=== PATIENT | female | born 1980 | race Caucasian/White ===

== ENCOUNTER 2020-08-04 16:56 | Outpatient (CLI) | payer BC, SELFPAY | END 2020-08-04 16:57 | disposition home or self-care (01) | LOC: ANHLAB 17:00 | PROVIDERS: Visit Provider Obstetrics & Gynecology | DX: N92.0 Excessive and frequent menstruation with regular cycle (principal); Z01.818 Encounter for other preprocedural examination | CPT/HCPCS: 36415; 86850; 86900; 86901 ==

== ENCOUNTER → 2020-08-06 03:06 | Outpatient (CLI) | payer BC, SELFPAY ==
[2020-08-06 19:46] LABS: SARS-CoV-2 RNA PCR Negative
== END ==
PROVIDERS: Visit Provider Obstetrics & Gynecology
DX: Z01.812 Encounter for preprocedural laboratory examination (principal); Z20.822 Contact with and (suspected) exposure to COVID-19
CPT/HCPCS: C9803; U0003; U0005

== ENCOUNTER 2020-08-09 00:54 | Day surgery (SDC) | payer BC, SELFPAY ==
[2020-07-28 10:40] VITALS: BMI 23.8
[2020-08-09] VITALS (11 sets, daily range): BP systolic 83–115; BP diastolic 41–73; PULSE 68–85; RESP 12–20; TEMP 36.6–36.8; O2SAT 99–100; BMI 24.1
--- NOTE | 2020-08-09 06:50 | P.PNAN_ITS ---
Anes - Initial Pre Proc Eval Procedure: Operation Date: 08/09/20 07:30 Proposed Procedures p Total Laparoscopic Assisted Hysterectomy - Juan Wilcox MD Date/Time: 08/09/20 06:50 Surgeon: Juan Wilcox MD Pre Op Diagnosis: menorrhagia Patient Data Age: 39 Gender: F Height: 5 ft 1 in Weight: 57.15 kg Allergies Allergy/AdvReac Type Severity Reaction Status Date / Time amoxicillin Allergy Severe Rash Verified 08/09/20 06:42 latex Allergy Severe Swelling Verified 08/09/20 06:42 MEPERIDINE HCL AdvReac Intermediate Vomiting Uncoded 08/09/20 06:42 Home Medications Medication Instructions Recorded Confirmed Type paroxetine HCl 20 mg PO DAILY 07/28/20 08/09/20 History topiramate 50 mg PO BID 07/28/20 08/09/20 History Patient hx anesthesia problems: post op nausea/vomiting Family hx anesthesia problems: none PMFSH Past Medical History Medical History Cervical cancer Depression Hx of migraines TIA (transient ischemic attack) Social History Social History Smoking status: Never smoker Alcohol intake: never Substance use: never Substance use type: does not use Living arrangements: with family Spiritual care concerns: No Anes - Eval Final PreProcedure Day of Procedure 08/09/20 06:50 Patient weight: normal Heart: regular rate and rhythm Lungs: clear to auscultation Airway: Mallampati scale class II Neurological: alert and oriented Last oral intake: >/= 8 hours ASA classification: III Emergent: no Anesthetic plan: proceed Anesthesia type and monitoring: general ETT and standard monitoring Informed Consent: The patient's anesthetic plan and its attendant risks and chava efits were discussed with the patient/family/POA. Questions were solicited and answers provided to the satisfaction of the patient/family/POA.
[2020-08-09] MEDS: LACTATED RINGERS 1,000 ML 30 ML IV CONT ×3 (06:55→09:53)
[2020-08-09] MEDS: ACETAMINOPHEN 500 MG TABLET 1000 MG PO (06:59)
[2020-08-09] MEDS: KETOROLAC 15 MG/ML VIAL (*BKC) IV PUSH (06:59)
[2020-08-09] MEDS: SCOPOLAMINE 1.5 MG PATCH TRANSDERM (06:59)
--- NOTE | 2020-08-09 07:17 | WPDHPUPDATE1 ---
History and Physical Update Update Date/Time: 08/09/20 07:17 History and Physical has been reviewed, including an updated exam of the patient. There are NO changes in the patient's condition. Risks, benefits, and alternatives have been discussed and questions answered. Patient agrees to proceed with procedure.
[2020-08-09] MEDS: CLINDAMYCIN 900 MG/D5W 50 ML 900 MG/50 ML PIGGYBACK 50 MG IVPB (07:32)
--- NOTE | 2020-08-09 09:50 | PM.PROC ---
Procedure Note - Detailed Date of procedure: 08/09/20 Pre-op diagnosis: menorrhagia Menorrhagia, left ovarian cyst Procedure performed: Total laparoscopic hysterectomy. Left ovarian cystectomy. Description of procedure: The patient was taken to the operating room. She was prepped and draped in the dorsal lithotomy position. A speculum was placed in the vagina. The cervix was grasped with a tenaculum. Stay sutures were placed at 3 and 9:00 a.m. of 0 Vicryl. The stay sutures were brought through the Ren up. The DARWIN manipulator was placed in the vagina with a fixed Ren cup. The cup was then pushed up around the cervix. The sutures were tied to the handle of the DARWIN manipulator. A 5 mm incision was made on the abdominal skin of the left upper quadrant using a scalpel. A 5 mm trocar was inserted into the intra-abdominal cavity under direct visualization the scope. Pneumoperitoneum was achieved. An 11 mm incision was made in the left lower quadrant of the abdomen with a scalpel. A 11 mm trocar was inserted into the intra-abdominal cavity under direct visualization the scope. A 5 mm periumbilical incision was made. A 5 mm scope was placed into the intra-abdominal cavity under direct visualization of the scope. Ovarian cystectomy was performed her left ovary. An incision was made in the ovary. The cyst capsule was peeled out of the ovary. The cut surface of the ovary was cauterized. Part of the cyst wall was removed as well to facilitate cauterization. This was all done with sharp and blunt dissection and cautery. The suspensory ligament of the ovary was cauterized and transected with ligature cautery in a bilateral fashion. The fallopian tubes were cauterized and transected in a bilateral fashion with LigaSure cautery. The round ligaments were cauterized and transected in bilateral fashion with LigaSure cautery. The round ligaments were cauterized and transected bilaterally with LigaSure cautery. The broad ligaments were cauterized and transected along the lateral aspects of the uterus down the level of the uterine arteries. A bladder flap was created using sharp and blunt dissection. The ureters were dissected out bilaterally down to the level of the uterine arteries. They could be visualized from the pelvic brim down the uterine arteries. Staying very close to the cervix the parametrium was cauterized transected in a stepwise fashion down to the level of the Ren cup. The Bladder flap was moved distally over the Ren cup using sharp and blunt dissection. The impression of the entire cup was visualized around the cervix. An incision was made with unipolar cautery down under the Ren cup creating a colpotomy incision all the way around the cervix. The uterus was taken out through the vagina. A pneumo occluder was placed in the vagina. The vagina was closed with 0 V lock suture in a running fashion. The ureters were identified again and found to be intact to the level of the uterine arteries. The pelvis was irrigated with a copious amount of antibiotic irrigation. The pneumoperitoneum was reduced. The trocars were removed. The skin was closed subcuticular 4 Monocryl covered with Dermabond. The pneumo occluder was removed from the vagina. The vagina was irrigated with Betadine. The patient tolerated the procedure well. She was taken to the recovery room in stable condition. Sponge lap and needle counts were correct x2. Anesthesia: GETA Surgeon: Juan Wilcox MD Estimated blood loss (mL): 200 Drains: No Packing: No Pathology: yes Complications: No immediate complications Condition: stable Disposition: PACU Findings: Absent fallopian tubes, pre cm to 4 cm left ovarian cyst. Scar between the bladder in the uterus. Normal size uterus. Normal-appearing right ovary
--- NOTE | 2020-08-09 10:04 | SUR.PHASEI ---
O2 removed at 1004.
[2020-08-09] MEDS: ONDANSETRON INJ 4 MG/2 ML VIAL IV PUSH (10:19)
[2020-08-09] MEDS: diphenhydrAMINE HCl INJ 50 MG/ML VIAL 25 MG IV PUSH (10:32)
[2020-08-09] MEDS: DEXTROSE 5%/0.45% SOD CHL 1,000 ML 125 ML IV CONT (11:29)
[2020-08-09] MEDS: METOCLOPRAMIDE HCL INJ 10 MG/2 ML VIAL (11:30)
[2020-08-09] MEDS: KETOROLAC 30 MG/ML VIAL (*BKC) IV PUSH (12:51)
[2020-08-09] MEDS: HYDROcodone/acetaminophen (*CRX) 10-325 MG TABLET 1 TAB PO ×2 (13:59→21:55)
[2020-08-09] MEDS: TOPIRAMATE 25 MG TABLET 50 MG PO (17:07)
[2020-08-09] MEDS: IBUPROFEN 600 MG TABLET PO (21:55)
[2020-08-10 04:40] VITALS: BP 104/68; PULSE 67; RESP 16; TEMP 36.6
[2020-08-10] MEDS: PARoxetine 20 MG TABLET PO (07:43)
[2020-08-10] MEDS: TOPIRAMATE 25 MG TABLET 50 MG PO (07:43)
[2020-08-10] MEDS: IBUPROFEN 600 MG TABLET PO (07:44)
[2020-08-10 08:25] VITALS: BP 105/53; PULSE 82; RESP 16; TEMP 37.7; O2SAT 100
--- NOTE | 2020-08-10 08:28 | PM.GYNPNOP ---
BOTTLE CARRIER - A/P Postoperative Procedures: Procedures Operation Date: 08/09/20 07:30 Actual Procedure Side Surgeon p Total Laparoscopic Assisted Hysterectomy Not Applicable Juan Wilcox MD Postoperative day: 1 Postoperative status: doing well and other (Tollerating Regular Diet) Postoperative plan: routine post-op care and discharge Time Spent With Patient Time: Total time spent is greater than 50% in coordination of care (as documented) at patient's floor/unit and/or counseling patient: Time with patient: 15 - 25 minutes BOTTLE CARRIER- PN:Subj Post-Op Subjective Date/time seen: 08/10/20 08:28 Subjective: patient reports feeling better, pain is well controlled and patient is tolerating oral intake Exam Const: General: cooperative, healthy appearing, comfortable and no acute distress Resp: Auscultation: no crackles, no rales, no rhonchi and no wheezes Cardio: Rhythm: regular rhythm Heart sounds: no click and no murmurs GI: Inspection: non-distended Auscultation: normal bowel sounds Other: Incisions - CDI Extrem: General: normal to inspection, no pedal edema and no calf tenderness BOTTLE CARRIER - PN: Obj Data Vital Signs Vital Signs: Vital Signs - 24 hr 08/09/20 09:21 08/09/20 09:35 08/09/20 09:50 Temperature 98.1 F Pulse Rate 68 85 69 Respiratory Rate 14 16 15 Blood Pressure 83/41 L 92/52 L 98/56 L Pulse Oximetry 100 100 99 08/09/20 10:05 08/09/20 10:20 08/09/20 10:35 Temperature Pulse Rate 68 70 85 Respiratory Rate 14 13 12 Blood Pressure 94/55 L 96/55 L 104/62 Pulse Oximetry 99 100 100 08/09/20 10:50 08/09/20 11:15 08/09/20 17:30 Temperature 97.8 F 98.3 F Pulse Rate 82 76 73 Respiratory Rate 13 18 20 Blood Pressure 105/61 96/60 L 104/62 Pulse Oximetry 100 100 99 08/09/20 22:00 08/10/20 04:40 Temperature 98.0 F 97.8 F Pulse Rate 70 67 Respiratory Rate 16 16 Blood Pressure 115/73 104/68 Pulse Oximetry Intake/Output Intake/Output: Intake & Output 08/07/20 08/08/20 08/09/20 08/10/20 23:59 23:59 23:59 23:59 Intake Total 1457.125 Output Total 400 Balance 1057.125 Meds/Results Medications: Active Medications Generic Name Dose Route Start Last Admin Trade Name Freq PRN Reason Stop Dose Admin Hydrocodone Bitart/Acetaminophen 1 tab 08/09/20 10:56 Hydrocodone/Acetaminophen (*Crx) 5-325 Mg Tablet PO Q3H PRN Pain Rated 5 or Less Hydrocodone Bitart/Acetaminophen 1 tab 08/09/20 10:56 08/09/20 21:55 Hydrocodone/Acetaminophen (*Crx) 10-325 Mg Tablet PO 1 tab Q3H PRN Administration Pain Rated 6 or Greater Ibuprofen 600 mg 08/09/20 10:56 08/10/20 07:44 Ibuprofen 600 Mg Tablet PO 600 mg Q6H PRN Administration Cramping Ketorolac Tromethamine 30 mg 08/09/20 10:56 08/09/20 12:51 Ketorolac 30 Mg/Ml Vial (*Bkc) IV PUSH 08/14/20 10:57 30 mg Q6H PRN Administration Pain Rated 4-6 Metoclopramide HCl 5 mg 08/09/20 22:10 Metoclopramide Hcl Inj 10 Mg/2 Ml Vial IV PUSH Q6HR PRN Nausea Naloxone HCl 0.1 mg 08/09/20 10:56 Naloxone Hcl 0.4 Mg/Ml Vial IV PUSH Q2M PRN Respiratory rate less than 10 Ondansetron HCl 4 mg 08/09/20 10:56 Ondansetron Inj 4 Mg/2 Ml Vial IV PUSH Q6H PRN Nausea And Vomiting Paroxetine HCl 20 mg 08/10/20 09:00 08/10/20 07:43 Paroxetine 20 Mg Tablet PO 20 mg DAILY EDD Administration Topiramate 50 mg 08/09/20 17:00 08/10/20 07:43 Topiramate 25 Mg Tablet PO 50 mg BID EDD Administration
[2020-08-10] MEDS: HYDROcodone/acetaminophen (*CRX) 5-325 MG TABLET 1 TAB PO (10:59)
--- NOTE | 2020-08-10 11:04 | WPDANESPN ---
Anes - Prog Note Post-Op Date/Time: 08/10/20 11:04 Cardiovascular status: normal Respiratory status: normal Airway patency: baseline Mental status: baseline Post-Op hydration status: normal Vital Signs: Last Vital Signs Temp 37.7 C H 08/10/20 08:25 Pulse 82 08/10/20 08:25 Resp 16 08/10/20 08:25 BP 105/53 L 08/10/20 08:25 Pulse Ox 100 08/10/20 08:25 Pain Score (VAS): 3 I/O: Intake & Output 08/09/20 08/10/20 08/10/20 23:59 07:59 15:59 Intake Total 200 Output Total 350 Balance -150 Post-procedural complaints: none Patient Feedback: Patient satisfied with anesthetic care.
== END 2020-08-10 11:57 | disposition home or self-care (01) ==
LOC: ANHSURGERY 06:12 → ANHOB2 13:35
PROVIDERS: PCP Emergency Medicine; Visit Provider Obstetrics & Gynecology
PROC: 0UT9FZZ Resection of Uterus, Via Natural or Artificial Opening With Percutaneous Endoscopic Assistance (ICD-10-PCS; CPT 58570; principal; 2020-08-09 07:30)
DX: N92.0 Excessive and frequent menstruation with regular cycle (principal); N83.12 Corpus luteum cyst of left ovary; N80.0 Endometriosis of uterus; N73.6 Female pelvic peritoneal adhesions (postinfective); F32.9 Major depressive disorder, single episode, unspecified; Z86.73 Personal history of transient ischemic attack (TIA), and cerebral infarction without residual deficits; Z85.41 Personal history of malignant neoplasm of cervix uteri
CPT/HCPCS: 58570; 58662; 88305; 88307; 99199; A9270; J1100; J1200; J1580; J1885; J2250; J2405; J2704; J2710; J2765; J3010; J7030; J7120

== ENCOUNTER 2022-04-12 08:28 | Emergency (ER) | payer BC, SELFPAY ==
--- NOTE | ~2022-04-12 | XR_ITS ---
EXAMINATION: XR chest 2V DATE: 04/12/2022 08:54 INDICATION: Chest pain TECHNIQUE: PA and lateral views of the chest are obtained. COMPARISON: 04/01/2011 FINDINGS: The lungs are free of acute opacities. There is symmetric scarring in the lung apices. No p leural effusion or pneumothorax. The cardiomediastinal silhouette is normal. The visualized bones and soft tissues are unremarkable. Surgical clips in the right upper quadrant are likely from prior chol ecystectomy. IMPRESSION: 1. No acute cardiopulmonary abnormality. Reviewed, dictated and finalized at location L. NCIAL ASSISTANT
--- NOTE | 2022-04-12 08:31 | ECG_ITS ---
Measurements Intervals Raymond Rate: 71 P: 68 WY: 128 QRS: 84 QRSD: 75 T: 69 QT: 342 QTc: 373 Interpretive Statements SINUS RHYTHM NONSPECIFIC T-WAVE ABNORMALITY ABNORMAL ECG NO PREVIOUS ECG AVAILABLE FOR COMPARISON Electronically Signed On 04-12-2022 10:10:47 LIBRARY ATTENDANT by Humphrey Bui M.D.
[2022-04-12 08:33] VITALS: BP 116/82; PULSE 80; RESP 18; TEMP 36.9; O2SAT 99
[2022-04-12 09:01] VITALS: O2SAT 99
--- NOTE | 2022-04-12 09:27 | ED.CHESTPAIN ---
HPI - Chest Pain General Chief Complaint: Chest Pain Stated Complaint: chest pain, nausea Time Seen by Provider: 04/12/22 09:09 Source: patient Mode of arrival: ambulatory Limitations: no limitations History of Present Illness HPI narrative: This is a 41-year-old female that presents to the emergency department for chest pain ongoing since this morning. Reports she was driving and started to have sharp, substernal chest pain. Associated with some nausea. Also reports she has had a pounding headache this morning. She takes topiramate daily for her history of migraines. She took an aspirin this morning with little relief. Also reports a mild cough. Denies fever, shortness of breath, vomiting. Related Data Home Medications Medication Instructions Recorded Confirmed paroxetine HCl 20 mg tablet 20 mg PO DAILY 07/28/20 08/09/20 topiramate 50 mg tablet 50 mg PO BID 07/28/20 08/09/20 Allergies Allergy/AdvReac Type Severity Reaction Status Date / Time amoxicillin Allergy Severe Rash Verified 08/09/20 06:42 latex Allergy Severe Swelling Verified 08/09/20 06:42 meperidine AdvReac Intermediate Vomiting Verified 08/09/20 18:13 Review of Systems Review of Systems: CONSTITUTIONAL: Denies fever ENT: Denies rhinorrhea, congestion, sore throat CARDIOVASCULAR: Reports chest pain, and edema. RESPIRATORY: Reports cough. Denies dyspnea. GASTROINTESTINAL: Reports nausea. Denies abdominal pain, vomiting PSYCHIATRIC: Reports depression. All systems reviewed & are unremarkable except as noted in HPI and below PMFSH Past Medical History Medical History Cervical cancer Depression Hx of migraines TIA (transient ischemic attack) Social History Social History Smoking status: Never smoker Alcohol intake: never Substance use: never Substance use type: does not use Living arrangements: with family Spiritual care concerns: No Exam Narrative: GENERAL: Well-appearing, well-nourished, and in no acute distress. HEAD: Normocephalic, atraumatic. EYES: PERRLA and EOMI. ENT: Nares clear, no rhinorrhea or epistaxis. Mucous membranes moist. Oropharynx without tonsillar hypertrophy exudate or other lesions. Bilateral TMs pearly green non-bulging NECK: Supple. No adenopathy or masses. CHEST: Clear to auscultation. No respiratory distress. No wheezes rales or rhonchi. Tender to palpation of the mid chest wall HEART: Regular rate and rhythm. No murmur heard. Normal peripheral pulses. ABDOMEN: Soft, nontender, nondistended, normal active bowel sounds. EXTREMITIES: Normal range of motion. No edema. SKIN: Warm, dry, no rash. NEURO: No focal deficits. Alert and oriented x3. CN II-XII grossly intact PSYCH: Normal mood and affect Course Course Emergency Course: Patient updated on work-up. Reports improvement with IV Tylenol, Reglan and Benadryl Vital Signs Vital signs: Vital Signs Temperature 98.5 F 04/12/22 08:33 Pulse Rate 80 04/12/22 08:33 Respiratory Rate 18 04/12/22 08:33 Blood Pressure 116/82 04/12/22 08:33 Pulse Oximetry 99 04/12/22 08:33 Oxygen Delivery Room Air 04/12/22 08:33 Temperature 98.5 F 04/12/22 08:33 Pulse Rate 65 04/12/22 10:00 Respiratory Rate 16 04/12/22 10:00 Blood Pressure 109/56 L 04/12/22 10:00 Pulse Oximetry 100 04/12/22 10:00 Oxygen Delivery Room Air 04/12/22 09:01 MDM - Chest Pain MDM Narrative Medical decision making narrative: Patient presents to the emergency department for substernal chest pain ongoing since this morning. She is afebrile and nontoxic-appearing. Her vitals are stable. CBC is without leukocytosis. Metabolic panel without concerning findings. Lipase is normal. EKG without acute ST changes. Baseline and 3-hour troponin are negative. She was reporting some swelling in her legs, there is no obvious edema on exam. Her BNP is n
[2022-04-12 09:30] VITALS: BP 109/78; PULSE 66; RESP 14; O2SAT 100
[2022-04-12] MEDS: diphenhydrAMINE HCl INJ 50 MG/ML VIAL 25 MG IV PUSH (09:39)
[2022-04-12] MEDS: SODIUM CHLORIDE 0.9% IV 1,000 ML 999 ML IV CONT (09:39)
[2022-04-12] MEDS: METOCLOPRAMIDE HCL INJ 10 MG/2 ML VIAL IV PUSH (09:42)
[2022-04-12 09:50] LABS: Basophils Absolute Auto 0.1 K/mm3 (0.0-0.1); Basophils Percent Auto 0.8 % (0.2-1.2); Eosinophils Percent Auto 0.5 % (0-4.4); Hematocrit 42.7 % (37.0-47.0); Hemoglobin 14.6 g/dL (12.0-15.0); Immature Granulocyte Absolute 0.01 K/mm3 (0.00-0.031); Immature Granulocyte Percent A 0.2 % (0-0.5); Lymphocytes Absolute Auto 1.58 K/mm3 (0.9-3.2); Lymphocytes Percent Auto 26.8 % (18.3-44.2); Mean Corpuscular HGB Conc 34.2 g/dl (32-36); Mean Corpuscular Hemoglobin 31.7 pg (26-34); Mean Corpuscular Volume 92.6 fl (80-100); Mean Platelet Volume 10.3 fl (7.4-10.4); Monocytes Absolute Auto 0.4 K/mm3 (0.1-0.6); Monocytes Percent Auto 6.1 % (2.6-8.5); Neutrophils Absolute Auto 3.9 K/mm3 (1.3-6.7); Neutrophils Percent Auto 65.6 % (45.5-73.1); Platelet Count Result 190 k/mm3 (150-375); Red Blood Count 4.61 M/mm3 (4.2-5.4); Red Cell Distribution Width 11.6 % (11.5-14.5); White Blood Count 5.9 K/mm3 (4.5-10.0)
[2022-04-12 10:00] VITALS: BP 109/56; PULSE 65; RESP 16; O2SAT 100
[2022-04-12 10:03] LABS: Alanine Aminotransferase 19 U/L (6-35); Albumin Level 4.2 g/dL (3.5-5.1); Alkaline Phosphatase 92 U/L (38-126); Anion Gap 7 mmol/L (8-16); Aspartate Amino Transferase 21 U/L (14-36); Bilirubin,Total 0.5 mg/dL (0.2-1.3); Blood Urea Nitrogen 16 mg/dL (7-17); Calcium 8.4 mg/dL (8.4-10.2); Carbon Dioxide 23 mmol/L (22-30); Chloride 110 mmol/L (98-107); Estimated CRCL calculation 70 ml/min; Estimated Glomerular Filt Rate > 60; Glucose 91 mg/dL (65-110); Lipase 94 U/L (23-300); Potassium 4.2 mmol/L (3.4-5.0); Sodium 140 mmol/L (137-145)
[2022-04-12 10:09] LABS: Partial Thromboplastin Time 29.7 SECONDS (22.3-36.8); Prothrombin Time 12.8 Seconds (11.1-14.7)
[2022-04-12 10:10] LABS: NT Pro B Type Natriuretic Pept 52 pg/mL (19.9-100)
[2022-04-12 10:13] LABS: Troponin I < 0.012 ng/mL (0.000-0.034)
[2022-04-12 10:26] LABS: Influenza A QL RT-PCR Negative (Negative); Influenza B QL RT-PCR Negative (Negative); SARS-CoV-2 RNA PCR Negative
[2022-04-12] MEDS: KETOROLAC 15 MG/ML VIAL (*BKC) IV PUSH (11:56)
[2022-04-12 12:14] LABS: Troponin I < 0.012 ng/mL (0.000-0.034)
[2022-04-12 12:36] VITALS: BP 95/61; PULSE 74; RESP 16; O2SAT 100
[2022-04-12 12:43] VITALS: BP 95/61; PULSE 59; RESP 16; O2SAT 100
== END 2022-04-12 12:36 | disposition home or self-care (01) ==
PROVIDERS: Physician Assistant; Emergency Provider Emergency Medicine; PCP Emergency Medicine
DX: R07.89 Other chest pain (principal); Z20.822 Contact with and (suspected) exposure to COVID-19; F32.A Depression, unspecified; Z86.73 Personal history of transient ischemic attack (TIA), and cerebral infarction without residual deficits; Z85.41 Personal history of malignant neoplasm of cervix uteri
CPT/HCPCS: 36415; 71046; 80053; 83690; 83880; 84484; 85025; 85610; 85730; 87636; 93005; 96361; 96365; 96375; 99284; J0131; J1200; J1885; J2765; J7030

== ENCOUNTER 2023-01-01 16:46 | Emergency (ER) | payer BC, SELFPAY ==
--- NOTE | ~2023-01-01 | XR_ITS ---
EXAMINATION: XR hand LT min 3V DATE: 01/01/2023 17:07 INDICATION: Left hand injury one week prior with pain at the fourth and fifth metacarpals TECHNIQUE: Posteroanterior, oblique and lateral views of the left hand were obtained. COMPARISON: None. FINDINGS: Alignment is normal. No fracture. Joint spaces are normal. Soft tissues are unremarkable. IMPRESSION: 1. Negative left hand radiographs. Reviewed, dictated and finalized at location A.
--- NOTE | ~2023-01-01 | XR_ITS ---
EXAMINATION: XR finger 5th RT min 2V DATE: 01/01/2023 17:07 INDICATION: Right fifth metacarpal pain post injury one week prior TECHNIQUE: Dorsal palmar, lateral and oblique views of the right fifth digit were obtained COMPARISON: None FINDINGS: Bone alignment is normal. No fracture. Mild osteoarthritis at the fifth proximal and distal interphal angeal joints. Soft tissues are unremarkable. IMPRESSION: 1. 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 No acute osseous abnormality. Reviewed, dictated and finalized at location A.
[2023-01-01 16:58] VITALS: BP 122/88; PULSE 97; RESP 16; TEMP 36.6; O2SAT 100
--- NOTE | 2023-01-01 17:43 | ED.UPPEXIN ---
HPI - Extremity Injury (Upper) General Chief Complaint: Extremity Injury, Upper Stated Complaint: Injured hand Time Seen by Provider: 01/01/23 17:20 Source: patient, RN notes reviewed and old records reviewed Mode of arrival: ambulatory Limitations: no limitations History of Present Illness HPI narrative: 42 year old female who presents to [facility] care with complaints of falling while walking on a retaining wall and put her hands out to try and break her fall one week ago. Patiet reports that she is having pain to her right 5th finger and to her left hand. Patient has full ROM of all her fingers, has some healing abrasions to the palms of both hands. Patient reports that she has used ice after fall and has taken some Ibuprofen. MD complaint: injury to: left, right, hand and finger (5th) Onset (ago): week(s) (1) Place: outdoors Severity scale (1-10): 3 Treatments prior to arrival: cold therapy and NSAIDS Related Data Home Medications Medication Instructions Recorded Confirmed paroxetine HCl 20 mg tablet 20 mg PO DAILY 07/28/20 08/09/20 topiramate 50 mg tablet 50 mg PO BID 07/28/20 08/09/20 Allergies Allergy/AdvReac Type Severity Reaction Status Date / Time amoxicillin Allergy Severe Rash Verified 08/09/20 06:42 latex Allergy Severe Swelling Verified 08/09/20 06:42 meperidine AdvReac Intermediate Vomiting Verified 08/09/20 18:13 Review of Systems Review of Systems: CONSTITUTIONAL: Denies fever, chills, or sweats. CARDIOVASCULAR: Denies chest pain, palpitations, or edema. RESPIRATORY: Denies cough or dyspnea. SKIN: Denies rash or itching. Denies lacerations,positive for abrasions to palms of hands MUSCULOSKELETAL: Reports right 5th finger pain, left hand pain over 4th and 5th metatarsals. NEUROLOGIC: Denies numbness, or weakness. All systems reviewed & are unremarkable except as noted in HPI and below PMFSH Past Medical History Medical History (Updated 01/02/23 @ 11:26 by Paola Tapia NP) Cervical cancer Depression Hx of migraines TIA (transient ischemic attack) Surgical History Surgical History (Updated 01/02/23 @ 20:43 by Paola Tapia NP) H/O: hysterectomy Hx of bilateral salpingectomy Previous section Social History Social History Smoking status: Never smoker Alcohol intake: never Substance use: never Substance use type: does not use Living arrangements: with family Spiritual care concerns: No Comments At time of signature, agree with nursing past medical, surgical, social and family history. There is no relevant family history pertinent to the presenting complaint Exam Narrative: GENERAL: Well-appearing, well-nourished, and in no acute distress. HEAD: Normocephalic, atraumatic. EYES: PERRLA, conjunctivae clear NECK: Supple. CHEST: Speaks in full sentences. No respiratory distress.SAO2 100% on room air HEART: Regular rate and rhythm. Normal and equal peripheral pulses. EXTREMITIES: bilateral hands have normal strength and sensation, normal range of motion. No edema or ecchymosis. 5/5 strength with normal flexion and extension. Normal sensation with sensitivity to light touch and pain. No point tenderness.?abrasions on palms healing, no skin tenting, no devitalized tissue or atrophy, no trophic changes, no obvious deformity, alignment normal, nearby joints and structures intact. Distal pulses palpable and equal bilaterally, skin warm, dry, pink. Capillary refill less than 3 seconds. Course Course Level of Care: Express Care Visit Vital Signs Vital signs: Vital Signs Temperature 36.6 C 01/01/23 16:58 Pulse Rate 97 01/01/23 16:58 Respiratory Rate 16 01/01/23 16:58 Blood Pressure 122/88 01/01/23 16:58 Pulse Oximetry 100 01/01/23 16:58 Temperature 36.6 C 01/01/23 16:58 Pulse Rate 97 01/01/23 16:58 Respiratory Rate 16 01/01/23 16:58 Blood Pressure 122/8
== END 2023-01-01 18:00 | disposition home or self-care (01) ==
PROVIDERS: Emergency Provider Registered Nurse; PCP Emergency Medicine
DX: S60.222A Contusion of left hand, initial encounter (principal); S60.221A Contusion of right hand, initial encounter; W17.89XA Other fall from one level to another, initial encounter; F32.A Depression, unspecified; Z85.41 Personal history of malignant neoplasm of cervix uteri; Z86.718 Personal history of other venous thrombosis and embolism
CPT/HCPCS: 73130; 73140; 99213; G0463

== ENCOUNTER 2023-08-13 09:01 | Outpatient (CLI) | payer BC, SELFPAY ==
--- NOTE | ~2023-08-13 | MMUS_ITS ---
EXAMINATION: MM diagnostic chel BI w shilpa, US breast BI complete HISTORY: Follow-up bilateral breast lumps TECHNIQUE: Additional 3-D tomosynthesis images of the breasts were performed and synthetic 2-D images were generated. CAD analysis was submitted and interpreted. High resolution bilateral complete breas t ultrasound was performed. COMPARISON: No prior studies for comparison. BREAST PARENCHYMAL COMPOSITION: Dense: The breasts are heterogeneously dense, which may obscure small masses FINDINGS: MAMMOGRAPHIC FINDINGS: There are no suspicious masses, calcifications or architectural distortion in either breast to sugges t malignancy. ULTRASOUND: Complete bilateral US of all 4 quadrants of the breasts and retroareolar region was reviewed. In the right breast at 10:00, 8 cm from the nipple there is a 1 cm cyst. No suspicious masses are identified in either breast to suggest malignancy. IMPRESSION: 1. No evidence for malignancy in either breast. 2. Routine yearly screening mammogram and regular clinical breast examination are recommended. BI-RADS Category 1: Negative Reviewed, dictated and finalized at location B. IMPRESSION: 1. No evidence for malignancy in either breast. 2. Routine yearly screening mammogram and regular clinical breast examination a re recommended. BI-RADS Category 1: Negative
== END 2023-08-13 09:02 ==
LOC: MICIMG 09:02
PROVIDERS: PCP Nurse Practitioner; Visit Provider Nurse Practitioner
DX: N63.20 Unspecified lump in the left breast, unspecified quadrant (principal); N63.10 Unspecified lump in the right breast, unspecified quadrant
CPT/HCPCS: 76641; 77062; 77066; G0279